=== PATIENT | female | born 1990 | race Asian ===

== ENCOUNTER 2024-03-30 12:59 | Emergency (ER) | payer OTHER ==
[~2024-03-30] VITALS: Ht 152.4 cm; Wt 67.6 kg
[2024-03-30] MEDS ORDERED: IBUP-1986 PO (13:48)
[2024-03-30] MEDS: ibuprofen tablet 400 MG TABLET PO ONE (13:50)
[2024-03-30 14:14] VITALS: BP 137/89; PULSE 89; RESP 16; TEMP 98; O2SAT 100
== END 2024-03-30 14:15 | disposition home or self-care (01) ==
LOC: ER 13:00
DX: S93.491A Sprain of other ligament of right ankle, initial encounter (principal); S63.591A Other specified sprain of right wrist, initial encounter; W18.39XA Other fall on same level, initial encounter; Y93.89 Activity, other specified; Y92.89 Other specified places as the place of occurrence of the external cause; Y99.8 Other external cause status
CPT/HCPCS: 73090; 73610; 99284; A6449